=== PATIENT | female | born 1970 | race Caucasian/White ===

== ENCOUNTER 2020-11-29 07:40 | Outpatient (CLI) | payer OTHER, SELFPAY ==
[2020-11-29 19:31] LABS: Basophils Percent Auto 0.4 % (0.2-1.2); Eosinophils Absolute Auto 0.1 K/mm3 (0-0.3); Eosinophils Percent Auto 0.9 % (0-4.4); Hematocrit 41.3 % (37.0-47.0); Hemoglobin 13.3 g/dL (12.0-15.0); Immature Granulocyte Absolute 0.01 K/mm3 (0.00-0.031); Immature Granulocyte Percent A 0.1 % (0-0.5); Lymphocytes Absolute Auto 2.57 K/mm3 (0.9-3.2); Lymphocytes Percent Auto 32.6 % (18.3-44.2); Mean Corpuscular HGB Conc 32.2 g/dl (32-36); Mean Corpuscular Hemoglobin 30.4 pg (26-34); Mean Corpuscular Volume 94.5 fl (80-100); Mean Platelet Volume 9.8 fl (7.4-10.4); Monocytes Absolute Auto 0.5 K/mm3 (0.1-0.6); Monocytes Percent Auto 6.3 % (2.6-8.5); Neutrophils Absolute Auto 4.7 K/mm3 (1.3-6.7); Neutrophils Percent Auto 59.7 % (45.5-73.1); Platelet Count Result 399 k/mm3 (150-375); Red Blood Count 4.37 M/mm3 (4.2-5.4); Red Cell Distribution Width 13.3 % (11.5-14.5); White Blood Count 7.9 K/mm3 (4.5-10.0)
[2020-11-29 19:38] LABS: Add Urine Microscopic? YES; Appearance Urine Cloudy (Clear); Bilirubin Urine Negative (Negative); Blood Urine 1+ (Negative); Calcium Oxalate Crystals Urine Present /hpf; Color Urine Yellow (Yellow); Glucose Urine UA Negative (Negative); Ketones Urine 1+ mg/dL (Negative); Leukocyte Esterase Ur Negative LEU/UL (Negative); Mucus Urine Few /lpf; Nitrate Urine Negative (Negative); Protein Urine 1+ mg/dL (Negative); Squamous Epithelial Cell Urine Few /hpf (Few)
[2020-11-29 19:43] LABS: Alanine Aminotransferase 30 U/L (4-35); Albumin Level 4.1 g/dL (3.5-5.1); Alkaline Phosphatase 67 U/L (38-126); Anion Gap 10 mmol/L (8-16); Aspartate Amino Transferase 25 U/L (14-36); Bilirubin,Total 0.5 mg/dL (0.2-1.3); Blood Urea Nitrogen 16 mg/dL (7-17); Calcium 9.3 mg/dL (8.4-10.2); Carbon Dioxide 26 mmol/L (22-30); Chloride 107 mmol/L (98-107); Cholesterol 146 mg/dL (0-200); Estimated Glomerular Filt Rate > 60; Glucose 99 mg/dL (65-105); HDL Direct 35 mg/dL; Hemoglobin A1C 5.4 % (<5.7); Potassium 3.7 mmol/L (3.4-5.0); Sodium 143 mmol/L (137-145); Triglycerides 59 mg/dL (<150)
[2020-11-29 19:48] LABS: Specific Grav Ur 1.035 (1.001-1.035)
[2020-11-29 19:52] LABS: LDL Cholesterol Direct 83 mg/dL
[2020-11-29 19:58] LABS: Free T4 Free Thyroxine 1.21 ng/mL (0.78-2.19); Vitamin D 25 Hydroxy 72.7 ng/mL
[2020-11-29 20:45] LABS: Folic Acid 16.8 ng/mL (2.76->20)
[2020-12-03 05:57] LABS: C-Peptide 1.46 ng/mL (0.80-3.85); FSH 14.7 mIU/mL (***); Triiodothyronine T3 Free 3.1 pg/mL (2.3-4.2)
[2020-12-03 10:37] LABS: T3 Reverse 16 ng/dL (8-25)
== END 2020-11-29 07:41 | disposition home or self-care (01) ==
PROVIDERS: PCP Family Medicine; Referring Provider Family Medicine; Visit Provider Obstetrics & Gynecology
DX: Z00.00 Encounter for general adult medical examination without abnormal findings (principal); R73.09 Other abnormal glucose; R79.89 Other specified abnormal findings of blood chemistry; Z80.9 Family history of malignant neoplasm, unspecified; R53.82 Chronic fatigue, unspecified; Z82.62 Family history of osteoporosis; Z79.899 Other long term (current) drug therapy; G25.81 Restless legs syndrome
CPT/HCPCS: 36415; 80053; 80061; 81001; 82306; 82607; 82746; 83001; 83036; 84439; 84443; 84481; 84482; 84681; 85025; 86140

== ENCOUNTER 2020-12-12 16:54 | Outpatient (CLI) | payer OTHER, SELFPAY ==
--- NOTE | ~2020-12-12 | MM_ITS ---
EXAMINATION: MM screening trini BI w dione HISTORY: Screening mammogram, family history of breast cancer in her mother. TECHNIQUE: Craniocaudal and mediolateral oblique 3-D tomosynthesis images were obtained and synthetic 2-D images were generated. CAD analysis was submitted and interpreted. COMPARISON: 03/22/2019, 10/17/2017, 08/01/2016 BREAST PARENCHYMAL COMPOSITION: There are scattered areas of fibroglandular density. FINDINGS: There is no evidence of suspicious mass, calcification, or architectural distortion to sugg est malignancy in either breast. There has been no suspicious interval change. IMPRESSION: 1. No mammographic evidence of malignancy. 2. Recommend routine screening mammography in one year. BI-RADS Category 1: Negative Reviewed, dictated and finalized at location A.
== END 2020-12-12 16:55 | disposition home or self-care (01) ==
LOC: ANHIMG 16:56
PROVIDERS: PCP Family Medicine; Visit Provider Obstetrics & Gynecology
DX: Z12.31 Encounter for screening mammogram for malignant neoplasm of breast (principal)
CPT/HCPCS: 77063; 77067

== ENCOUNTER 2021-01-23 12:54 | Outpatient (CLI) | payer OTHER, SELFPAY ==
[2021-01-23 18:49] LABS: Free T4 Free Thyroxine 1.06 ng/mL (0.78-2.19)
[2021-01-23 19:05] LABS: Thyroid Stimulating Hormone 0.595 uIU/mL (0.465-4.680); Total Triiodothyronine (T3) 1.42 NG/ML (0.97-1.69)
[2021-01-25 13:44] LABS: Thyrotropin Receptor Antibody <1.00 IU/L (<=2.00)
[2021-01-26 01:14] LABS: Thyroid Peroxidase Antibodies <1 IU/mL (<9)
== END 2021-01-23 12:55 | disposition home or self-care (01) ==
PROVIDERS: PCP Family Medicine; Visit Provider Internal Medicine Endocrinology, Diabetes & Metabolism
DX: E05.90 Thyrotoxicosis, unspecified without thyrotoxic crisis or storm (principal); E07.9 Disorder of thyroid, unspecified
CPT/HCPCS: 36415; 83519; 84439; 84443; 84480; 86376

== ENCOUNTER 2021-05-07 09:33 | Outpatient (CLI) | payer OTHER, SELFPAY ==
[2021-05-08 06:16] LABS: Vitamin D 25 Hydroxy 40.2 ng/mL
== END 2021-05-07 09:34 | disposition home or self-care (01) ==
LOC: ANHBWCLAB 09:34
PROVIDERS: PCP Family Medicine; Visit Provider Family Medicine
DX: R79.89 Other specified abnormal findings of blood chemistry (principal)
CPT/HCPCS: 36415; 82306

== ENCOUNTER 2022-02-07 07:22 | Outpatient (CLI) | payer OTHER, SELFPAY ==
--- NOTE | ~2022-02-07 | MM_ITS ---
EXAMINATION: MM screening trini BI w dione HISTORY: Screening mammogram TECHNIQUE: Craniocaudal and mediolateral oblique 3-D tomosynthesis images were obtained and synthetic 2-D images were generated. CAD analysis was submitted and interpreted. COMPARISON: 12/12/2020, 03/22/2019, 10/17/2017 bilateral screening mammogram examinations BREAST PARENCHYMAL COMPOSITION: There are scattered areas of fibroglandular density. FINDINGS: Stable approximately 5.8 x 8 mm benign circumscribed intramammary lymph node, upper outer r ight breast. There is no evidence of suspicious mass, calcification, or architectural distortion to s uggest malignancy in either breast. There has been no suspicious interval change. IMPRESSION: 1. No mammographic evidence of malignancy. 2. Recommend routine screening mammography in one year. BI-RADS Category 2: Benign finding(s). Reviewed, dictated and finalized at location A.
== END 2022-02-07 07:23 | disposition home or self-care (01) ==
PROVIDERS: PCP Family Medicine; Visit Provider Obstetrics & Gynecology
DX: Z12.31 Encounter for screening mammogram for malignant neoplasm of breast (principal)
CPT/HCPCS: 77063; 77067

== ENCOUNTER 2022-05-10 07:34 | Outpatient (CLI) | payer OTHER, SELFPAY ==
[2022-05-10 19:31] LABS: Hemoglobin 13.3 g/dL (12.0-15.0); Mean Corpuscular HGB Conc 32.4 g/dl (32-36); Mean Corpuscular Hemoglobin 30.8 pg (26-34); Mean Corpuscular Volume 94.9 fl (80-100); Mean Platelet Volume 9.7 fl (7.4-10.4); Platelet Count Result 401 k/mm3 (150-375); Red Blood Count 4.32 M/mm3 (4.2-5.4); Red Cell Distribution Width 13.2 % (11.5-14.5); White Blood Count 8.4 K/mm3 (4.5-10.0)
[2022-05-10 19:34] LABS: Alanine Aminotransferase 39 U/L (6-35); Albumin Level 4.3 g/dL (3.5-5.1); Alkaline Phosphatase 85 U/L (38-126); Anion Gap 7 mmol/L (8-16); Aspartate Amino Transferase 41 U/L (14-36); Bilirubin,Total 0.5 mg/dL (0.2-1.3); Blood Urea Nitrogen 16 mg/dL (7-17); Calcium 8.9 mg/dL (8.4-10.2); Carbon Dioxide 28 mmol/L (22-30); Chloride 102 mmol/L (98-107); Cholesterol 178 mg/dL (0-200); Estimated Glomerular Filt Rate > 60; Glucose 86 mg/dL (65-110); HDL Direct 33 mg/dL; Potassium 3.7 mmol/L (3.4-5.0); Sodium 137 mmol/L (137-145); Triglycerides 83 mg/dL (<150)
[2022-05-10 19:46] LABS: LDL Cholesterol Direct 110 mg/dL
[2022-05-10 20:01] LABS: Thyroid Stimulating Hormone 0.409 uIU/mL (0.465-4.680)
== END 2022-05-10 07:35 | disposition home or self-care (01) ==
LOC: ANHBWCLAB 07:35
PROVIDERS: PCP Family Medicine; Visit Provider Family Medicine
DX: Z00.00 Encounter for general adult medical examination without abnormal findings (principal); E66.9 Obesity, unspecified; R53.82 Chronic fatigue, unspecified
CPT/HCPCS: 36415; 80053; 80061; 84443; 85027

== ENCOUNTER 2022-07-10 08:29 | Outpatient (CLI) | payer OTHER, SELFPAY ==
[2022-07-10 21:00] LABS: Alanine Aminotransferase 39 U/L (6-35); Albumin Level 4.2 g/dL (3.5-5.1); Alkaline Phosphatase 88 U/L (38-126); Aspartate Amino Transferase 64 U/L (14-36); Bilirubin,Total 0.6 mg/dL (0.2-1.3)
== END 2022-07-10 08:30 | disposition home or self-care (01) ==
LOC: ANHBWCLAB 08:30
PROVIDERS: PCP Family Medicine; Visit Provider Family Medicine
DX: R74.01 Elevation of levels of liver transaminase levels (principal)
CPT/HCPCS: 36415; 80076

== ENCOUNTER → 2022-07-19 08:01 | Outpatient (CLI) | payer OTHER, SELFPAY ==
--- NOTE | ~2022-07-19 | US_ITS ---
EXAMINATION: US abdomen limited DATE: 07/19/2022 08:16 INDICATION: Elevated liver function tests, prior cholecystectomy TECHNIQUE: Multiple grayscale and Doppler ultrasound images of the abdomen were obtained. COMPARISON: None available FINDINGS: Bowel gas obscures visualization of the pancreas. The visualized portions of the pancreas a re unremarkable. The liver is normal with normal echogenicity and echotexture. No surface nodularity. Normal hepatopetal flow in the main portal vein. The gallbladder is surgically absent. The normal co mmon bile duct measures 6 mm. IMPRESSION: 1. No sonographic correlate for the patient's symptoms. Reviewed, dictated and finalized at location B. RITY SERGEANT
== END ==
PROVIDERS: PCP Family Medicine; Visit Provider Family Medicine
DX: R74.01 Elevation of levels of liver transaminase levels (principal)
CPT/HCPCS: 76705

== ENCOUNTER 2022-09-25 08:28 | Outpatient (CLI) | payer OTHER, SELFPAY ==
[2022-09-25 20:31] LABS: Alanine Aminotransferase 33 U/L (6-35); Albumin Level 4.3 g/dL (3.5-5.1); Alkaline Phosphatase 87 U/L (38-126); Aspartate Amino Transferase 45 U/L (14-36); Bilirubin,Total 0.5 mg/dL (0.2-1.3)
[2022-09-25 21:10] LABS: Thyroid Stimulating Hormone 0.528 uIU/mL (0.465-4.680)
== END 2022-09-25 08:29 | disposition home or self-care (01) ==
LOC: ANHBWCLAB 08:29
PROVIDERS: PCP Family Medicine; Visit Provider Nurse Practitioner Family
DX: R74.8 Abnormal levels of other serum enzymes (principal); R74.01 Elevation of levels of liver transaminase levels; R79.89 Other specified abnormal findings of blood chemistry
CPT/HCPCS: 36415; 80076; 84443

== ENCOUNTER 2023-01-23 06:14 | Day surgery (SDC) | payer OTHER, SELFPAY ==
[2022-12-17 10:59] VITALS: BMI 36.0
[2023-01-07 11:52] VITALS: BMI 34.0
--- NOTE | 2023-01-22 09:18 | P.PNAN_ITS ---
Anes - Initial Pre Proc Eval Procedure: Operation Date: 01/23/23 08:00 Proposed Procedures p Screening Colonoscopy - Ike Hernandez MD Date/Time: 01/22/23 09:18 Surgeon: Ike Hernandez MD Pre Op Diagnosis: Neoplasm Screening Patient Data Age: 52 Gender: F Height: 1.71 m Weight: 100 kg Allergies Allergy/AdvReac Type Severity Reaction Status Date / Time No Known Allergies Allergy Verified 01/23/23 06:48 Home Medications Medication Instructions Recorded Confirmed Type escitalopram oxalate 5 mg tablet 5 mg PO DAILY #90 tabs 08/04/22 01/23/23 Rx (Lexapro) levonorgestrel 21 mcg/24 hours (8 1 device intrauterine ONCE 10/14/22 01/23/23 History yrs) 52 mg intrauterine device (Mirena) Patient hx anesthesia problems: none Family hx anesthesia problems: none Results Review: All pre-operative results and documents have been reviewed as part of the pre- operative evaluation. PMFSH Past Medical History Medical History Vaginal delivery x 3 Surgical History Surgical History History of cholecystectomy Family History Family History Grandparent Hypertension Cerebrovascular accident Carcinoma of colon, Onset Age: 55 Diabetes mellitus, Onset Age: 75 Mother Family history of malignant neoplasm of breast in first degree relative, Onset Age: 56 Patient's mother is Depression Anxiety Sibling Patient's brother is Father Hypertension Social History Social History Smoking status: Never smoker Second hand tobacco smoke exposure: No Smoking end date: 06/02/14 Alcohol intake: current Substance use: never Substance use type: does not use Lack of Transportation: No Lack of Food: Never True Current Housing: I Have Housing Concerned About Future Housing: No Difficulty Paying Gas/Electric Bills: No Difficulty Paying for Meds: No Currently Unemployed: No Education: Associate Degree Difficulty w/ Childcare or Family Care: No Living arrangements: with family Spiritual care concerns: No Anes - Eval Final PreProcedure Day of Procedure 01/22/23 09:18 Patient weight: obese Heart: regular rate and rhythm Lungs: clear to auscultation Airway: Mallampati scale class II Neurological: alert and oriented Last oral intake: >/= 8 hours ASA classification: II Emergent: no Anesthetic plan: proceed Anesthesia type and monitoring: general GIVS and standard monitoring Results Review: All pre-operative results and documents have been reviewed as part of the pre- operative evaluation. Informed Consent: The patient's anesthetic plan and its attendant risks and benefits were discussed with the patient/family/POA. Questions were solicited and answers provided to the satisfaction of the patient/family/POA.
[2023-01-23 06:49] VITALS: BP 141/92; PULSE 67; RESP 18; TEMP 36.7; O2SAT 98
[2023-01-23] MEDS: LACTATED RINGERS 1,000 ML 150 ML IV CONT (07:06)
--- NOTE | 2023-01-23 08:18 | PM.HPGS ---
History of Present Illness History of Present Illness Consent: Risks, benefits, and alternatives have been discussed and questions answered. Patient agrees to proceed with procedure. Chief complaint: Neoplasm Screening Narrative: Evie Mondragon is a 52 year old female here for first screening colonoscopy Review of Systems Constitutional: Constitutional: Denies headache(s) and Denies weakness Eyes: Eyes: Denies blurry vision ENT: Reports Normal hearing present, Denies headache(s) and Denies neck pain Cardiovascular: Cardiovascular: Denies chest pain and Denies dyspnea Respiratory: Respiratory: Denies dyspnea Gastrointestinal: Gastrointestinal: Reports no additional gastrointestinal complaints Genitourinary: Genitourinary: Denies dysuria Musculoskeletal: Musculoskeletal: Denies neck pain Integumentary/Breasts: Skin/Breast: Denies dry skin Neurologic: Reports Normal hearing present, Denies headache(s) and Denies weakness Psychiatric: Psychiatric: Denies anxiety Endocrine: Endocrine: Denies change in body appearance Hematologic/Lymphatic: Hematologic/Lymphatic: Denies easy bleeding Allergic/Immunologic: Allergic/Immunologic: Denies urticaria PMF Past Medical History Medical History (Updated 01/23/23 @ 08:19 by Ike Hernandez MD) Colon cancer screening Vaginal delivery x 3 Surgical History Surgical History History of cholecystectomy Family History Family History Grandparent Hypertension Cerebrovascular accident Carcinoma of colon, Onset Age: 55 Diabetes mellitus, Onset Age: 75 Mother Family history of malignant neoplasm of breast in first degree relative, Onset Age: 56 Patient's mother is Depression Anxiety Sibling Patient's brother is Father Hypertension Social History Social History Smoking status: Never smoker Second hand tobacco smoke exposure: No Smoking end date: 06/02/14 Alcohol intake: current Substance use: never Substance use type: does not use Lack of Transportation: No Lack of Food: Never True Current Housing: I Have Housing Concerned About Future Housing: No Difficulty Paying Gas/Electric Bills: No Difficulty Paying for Meds: No Currently Unemployed: No Education: Associate Degree Difficulty w/ Childcare or Family Care: No Living arrangements: with family Spiritual care concerns: No Meds Home Medications and Allergies Home Medications Medication Instructions Recorded Confirmed Type escitalopram oxalate 5 mg tablet 5 mg PO DAILY #90 tabs 08/04/22 01/23/23 Rx (Lexapro) levonorgestrel 21 mcg/24 hours (8 1 device intrauterine ONCE 10/14/22 01/23/23 History yrs) 52 mg intrauterine device (Mirena) Allergies Allergy/AdvReac Type Severity Reaction Status Date / Time No Known Allergies Allergy Verified 01/23/23 06:48 Vital Signs Vital Signs - 24 hr 01/23/23 06:49 Temperature 98.1 F Pulse Rate 67 Respiratory Rate 18 Blood Pressure 141/92 H Pulse Oximetry 98 Oxygen Delivery Room Air Exam Const: General: comfortable and no acute distress HENMT: Face/Nose/Sinus: Normal nares present Eyes: General: appearance normal, both eyes and all related structures Neck: Neck: no JVD Resp: Auscultation: clear to auscultation bilaterally Cardio: Rate: regular rate Rhythm: regular rhythm GI: Inspection: non-distended GI Palp: Yes Soft to palpation Skin: General skin exam: normal color Neuro: General: gait normal Speech: normal speech Extrem: General: normal to inspection Psych: Mental Status: mental status grossly normal Assessment and Plan Assessment and plan (1) Colon cancer screening: Code(s): Z12.11 - Encounter for screening for malignan
[2023-01-23 08:50] VITALS: BP 131/89; PULSE 68; RESP 20; O2SAT 95
[2023-01-23 09:00] VITALS: BP 140/79; PULSE 61; RESP 15; O2SAT 100
[2023-01-23 09:10] VITALS: BP 144/80; PULSE 58; RESP 16; O2SAT 100
--- NOTE | 2023-01-23 10:33 | WPDANESPN ---
Anes - Prog Note Post-Op Date/Time: 01/23/23 10:33 Cardiovascular status: normal Respiratory status: normal Airway patency: baseline Mental status: baseline Post-Op hydration status: normal Vital Signs: Last Vital Signs Temp 36.7 C 01/23/23 06:49 Pulse 58 L 01/23/23 09:10 Resp 16 01/23/23 09:10 BP 144/80 H 01/23/23 09:10 Pulse Ox 100 01/23/23 09:10 O2 Del Method Room Air 01/23/23 09:10 Pain Score (VAS): 0 I/O: Intake & Output 01/22/23 01/23/23 01/23/23 23:59 07:59 15:59 Intake Total 400 Balance 400 Post-procedural complaints: none Patient Feedback: Patient satisfied with anesthetic care. Other Findings: Patient vital signs back to baseline. Patient denies nausea and vomiting. Patient's pain under control. Patient OK for discharge.
== END 2023-01-23 09:29 | disposition home or self-care (01) ==
PROVIDERS: PCP Family Medicine; Visit Provider Internal Medicine Gastroenterology
PROC: 0DJD8ZZ Inspection of Lower Intestinal Tract, Via Natural or Artificial Opening Endoscopic (ICD-10-PCS; CPT 45378; principal; 2023-01-23 08:00)
DX: Z12.11 Encounter for screening for malignant neoplasm of colon (principal); D12.2 Benign neoplasm of ascending colon; D12.3 Benign neoplasm of transverse colon; K64.8 Other hemorrhoids
CPT/HCPCS: 45385; 45380

== ENCOUNTER 2023-01-23 09:00 | Outpatient (NON) | payer OTHER, SELFPAY | END 2023-01-23 09:01 | disposition home or self-care (01) | PROVIDERS: PCP Family Medicine; Visit Provider Internal Medicine Gastroenterology | DX: D12.2 Benign neoplasm of ascending colon (principal) | CPT/HCPCS: 88305 ==

== ENCOUNTER 2023-04-02 07:57 | Outpatient (CLI) | payer OTHER, SELFPAY ==
--- NOTE | ~2023-04-02 | MM_ITS ---
EXAMINATION: MM screening [facility] BI w dione HISTORY: Screening mammogram TECHNIQUE: Craniocaudal and mediolateral oblique 3-D tomosynthesis images were obtained and synthetic 2-D images were generated. CAD analysis was submitted and interpreted. COMPARISON: 02/07/2022, 12/12/2020, 03/22/2019 BREAST PARENCHYMAL COMPOSITION: There are scattered areas of fibroglandular density. FINDINGS: RIGHT BREAST: An asymmetry is present in the posterior third of the slightly outer breast at the post erior fibroglandular margin approximately 10 cm from the nipple on the craniocaudal view. LEFT BREAST: No suspicious mass, calcification, or architectural distortion are identified to suggest malignancy. There has been no suspicious interval change. IMPRESSION: 1. Right breast asymmetry on the craniocaudal view. 2. Additional mammographic views and possible breast ultrasound are recommended. BI-RADS Category 0: Incomplete: Needs additional imaging evaluation. Reviewed, dictated and finalized at location A. IMPRESSION: 1. Right breast asymmetry on the craniocaudal view. 2. Additional mammographic views and possible breast ultrasound are recommended . BI-RADS Category 0: Incomplete: Needs additional imaging evaluation.
== END 2023-04-02 07:58 | disposition home or self-care (01) ==
LOC: CHSIMG 07:59
PROVIDERS: PCP Family Medicine; Visit Provider Obstetrics & Gynecology
DX: Z12.31 Encounter for screening mammogram for malignant neoplasm of breast (principal); R92.8 Other abnormal and inconclusive findings on diagnostic imaging of breast
CPT/HCPCS: 77063; 77067

== ENCOUNTER 2023-04-07 08:45 | Outpatient (CLI) | payer OTHER, SELFPAY ==
--- NOTE | ~2023-04-07 | MMUS_ITS ---
EXAMINATION: MM diagnostic trini RT w dione, US breast RT limited HISTORY: Follow-up right breast asymmetry TECHNIQUE: Additional 3-D tomosynthesis images of the right breast were performed and synthetic 2-D i mages were generated. CAD analysis was submitted and interpreted. High resolution Limited right breas t ultrasound was performed. COMPARISON: 04/02/2023 BREAST PARENCHYMAL COMPOSITION: Breast composed of scattered areas of fibroglandular density FINDINGS: MAMMOGRAPHIC FINDINGS: There is a mass in the upper outer quadrant of the right breast, middle third, consistent with a lymp h node. No suspicious masses to suggest malignancy. Focal asymmetry laterally on CC view is less appa rent with spot compression view. ULTRASOUND: Limited right breast ultrasound: At 9:00, 7 cm from the nipple there is a normal-appearing intramamma ry left node measuring 9 mm. At 9:00, 9 cm from the nipple there is a 3 mm cyst. No suspicious masses in the right breast to suggest malignancy. IMPRESSION: 1. No evidence for malignancy in the right breast. Benign findings. 2. Routine yearly screening mammogram and regular clinical breast examination are recommended. BI-RADS CATEGORY 0 - INCOMPLETE STUDY, NEED ADDITIONAL IMAGING EVALUATION. Reviewed, dictated and finalized at location A. RO ATTENDANT IMPRESSION: 1. No evidence for malignancy in the right breast. Benign findings. 2. Routine yearly screening mammogram and regular clinical breast examination a re recommended. BI-RADS CATEGORY 0 - INCOMPLETE STUDY, NEED ADDITIONAL IMAGING EVALUATION.
== END 2023-04-07 08:46 | disposition home or self-care (01) ==
LOC: CHSIMG 08:47
PROVIDERS: PCP Family Medicine; Visit Provider Obstetrics & Gynecology
DX: R92.8 Other abnormal and inconclusive findings on diagnostic imaging of breast (principal)
CPT/HCPCS: 76642; 77061; 77065; G0279

== ENCOUNTER 2024-02-05 07:30 | Outpatient (CLI) | payer OTHER, SELFPAY ==
[2024-02-05 18:37] LABS: Basophils Absolute Auto 0.1 K/mm3 (0.0-0.1); Basophils Percent Auto 0.6 % (0.2-1.2); Eosinophils Absolute Auto 0.2 K/mm3 (0-0.3); Eosinophils Percent Auto 1.8 % (0-4.4); Hematocrit 42.9 % (37.0-47.0); Hemoglobin 13.5 g/dL (12.0-15.0); Immature Granulocyte Absolute 0.01 K/mm3 (0.00-0.031); Immature Granulocyte Percent A 0.1 % (0-0.5); Lymphocytes Percent Auto 31.4 % (18.3-44.2); Mean Corpuscular HGB Conc 31.5 g/dl (32-36); Mean Corpuscular Hemoglobin 30.5 pg (26-34); Mean Corpuscular Volume 97.1 fl (80-100); Mean Platelet Volume 9.7 fl (7.4-10.4); Monocytes Absolute Auto 0.6 K/mm3 (0.1-0.6); Monocytes Percent Auto 6.8 % (2.6-8.5); Neutrophils Absolute Auto 4.9 K/mm3 (1.3-6.7); Neutrophils Percent Auto 59.3 % (45.5-73.1); Platelet Count Result 336 k/mm3 (150-375); Red Blood Count 4.42 M/mm3 (4.2-5.4); Red Cell Distribution Width 13.7 % (11.5-14.5); White Blood Count 8.3 K/mm3 (4.5-10.0)
[2024-02-05 18:43] LABS: Alanine Aminotransferase 23 U/L (6-35); Albumin Level 4.1 g/dL (3.5-5.1); Alkaline Phosphatase 74 U/L (38-126); Anion Gap 9 mmol/L (4-12); Aspartate Amino Transferase 92 U/L (14-36); Bilirubin,Total 0.4 mg/dL (0.2-1.3); Blood Urea Nitrogen 21 mg/dL (7-17); Carbon Dioxide 28 mmol/L (22-30); Chloride 102 mmol/L (98-107); Cholesterol 173 mg/dL (0-200); Estimated Glomerular Filt Rate > 60; Glucose 82 mg/dL (65-110); HDL Direct 36 mg/dL; Magnesium 2.1 mg/dL (1.6-2.3); Potassium 4.3 mmol/L (3.4-5.0); Sodium 139 mmol/L (137-145); Triglycerides 112 mg/dL (<150)
[2024-02-05 18:54] LABS: LDL Cholesterol Direct 106 mg/dL
[2024-02-05 19:25] LABS: Vitamin D 25 Hydroxy 29.4 ng/mL
[2024-02-05 21:40] LABS: Free T4 Free Thyroxine Reflex 0.82 ng/dL (0.78-2.19)
[2024-02-05 22:31] LABS: Total Triiodothyronine (T3) 1.18 NG/ML (0.97-1.69)
== END 2024-02-05 07:31 | disposition home or self-care (01) ==
PROVIDERS: PCP Nurse Practitioner Adult Health; Visit Provider Nurse Practitioner Adult Health
DX: R79.89 Other specified abnormal findings of blood chemistry (principal); I10 Essential (primary) hypertension
CPT/HCPCS: 36415; 80053; 80061; 82306; 83735; 84439; 84443; 84480; 85025

== ENCOUNTER 2024-02-12 07:46 | Outpatient (CLI) | payer OTHER, SELFPAY ==
[2024-02-12 19:16] LABS: Alanine Aminotransferase 24 U/L (6-35); Albumin Level 4.2 g/dL (3.5-5.1); Alkaline Phosphatase 80 U/L (38-126); Aspartate Amino Transferase 41 U/L (14-36); Bilirubin,Total 0.3 mg/dL (0.2-1.3)
[2024-02-16 11:04] LABS: Thyroid Peroxidase Antibodies 1 IU/mL (<9)
== END 2024-02-12 07:47 | disposition home or self-care (01) ==
LOC: ANHBWCLAB 07:48
PROVIDERS: PCP Nurse Practitioner Adult Health; Visit Provider Nurse Practitioner Adult Health
DX: R74.8 Abnormal levels of other serum enzymes (principal); R79.89 Other specified abnormal findings of blood chemistry
CPT/HCPCS: 36415; 80076; 86376

== ENCOUNTER 2024-02-12 10:33 | Outpatient (CLI) | payer OTHER, SELFPAY ==
--- NOTE | ~2024-02-12 | US_ITS ---
EXAMINATION: US thyroid DATE: 02/12/2024 10:47 INDICATION: Other specified abnormal findings of blood chemistry. TECHNIQUE: Multiple ultrasound images of the thyroid were obtained. COMPARISON: None. FINDINGS: The right thyroid lobe measures 5.2 x 2.8 x 2.3 cm. The left thyroid lobe measures 4.6 x 2.0 x 2.0 c m. In the right thyroid lobe, there is a 2.4 cm solid, hypoechoic, wider than tall nodule with evita h margin without echogenic foci (TI-RADS TR4). In the right thyroid lobe, there is a 1.2 cm almost en tirely solid, hypoechoic, wider than tall nodule with smooth margin without echogenic foci (TR4). In the left thyroid lobe, there is a 15 mm solid, hypoechoic, wider than tall nodule with smooth margin without echogenic foci (TR4). In the left thyroid lobe, there is an 18 mm predominantly solid, hypoec hoic, wider than tall nodule with smooth margin without echogenic foci (TR4). IMPRESSION: 1. Multinodular goiter. Consider ultrasound-guided fine-needle aspiration of 2 nodules. Reviewed, dictated and finalized at location A.
== END 2024-02-12 10:34 | disposition home or self-care (01) ==
LOC: GOSHIMG 10:34
PROVIDERS: PCP Nurse Practitioner Adult Health; Visit Provider Nurse Practitioner Adult Health
DX: E04.2 Nontoxic multinodular goiter (principal); R79.89 Other specified abnormal findings of blood chemistry
CPT/HCPCS: 76536

== ENCOUNTER 2024-04-05 10:10 | Outpatient (CLI) | payer OTHER, SELFPAY ==
--- NOTE | ~2024-04-05 | MM_ITS ---
EXAMINATION: MM screening trini BI w dione HISTORY: Screening TECHNIQUE: Craniocaudal and mediolateral oblique 3-D tomosynthesis images were obtained and synthetic 2-D images were generated. CAD analysis was submitted and interpreted. COMPARISON: Comparison to multiple prior studies sequentially, with oldest reviewed study dated 10/17. BREAST PARENCHYMAL COMPOSITION: Not dense: There are scattered areas of fibroglandular density. FINDINGS: There is no evidence of suspicious mass, calcification, or architectural distortion to sugg est malignancy in either breast. There has been no suspicious interval change. IMPRESSION: 1. No mammographic evidence of malignancy. 2. Recommend routine screening mammography in one year. BI-RADS Category 1: Negative Reviewed, dictated and finalized at location B. N CAPITAL CONSULTANT
== END 2024-04-05 10:11 | disposition home or self-care (01) ==
LOC: CHSIMG 10:12
PROVIDERS: PCP Nurse Practitioner Adult Health; Visit Provider Nurse Practitioner Obstetrics & Gynecology
DX: Z12.31 Encounter for screening mammogram for malignant neoplasm of breast (principal)
CPT/HCPCS: 77063; 77067

== ENCOUNTER 2025-03-10 07:10 | Outpatient (CLI) | payer OTHER, SELFPAY ==
[2025-03-10 19:23] LABS: Hematocrit 40.9 % (37.0-47.0); Hemoglobin 12.7 g/dL (12.0-15.0); Mean Corpuscular HGB Conc 31.1 g/dl (32-36); Mean Corpuscular Hemoglobin 30.3 pg (26-34); Mean Corpuscular Volume 97.6 fl (80-100); Platelet Count Result 360 k/mm3 (150-375); Red Blood Count 4.19 M/mm3 (4.2-5.4); White Blood Count 8.6 K/mm3 (4.5-10.0)
[2025-03-10 19:36] LABS: Alanine Aminotransferase 20 U/L (6-35); Albumin Level 3.9 g/dL (3.5-5.1); Alkaline Phosphatase 80 U/L (38-126); Anion Gap 7 mmol/L (4-12); Aspartate Amino Transferase 50 U/L (14-36); Bilirubin,Total 0.3 mg/dL (0.2-1.3); Blood Urea Nitrogen 15 mg/dL (7-17); Calcium 9.4 mg/dL (8.4-10.2); Carbon Dioxide 28 mmol/L (22-30); Chloride 104 mmol/L (98-107); Cholesterol 157 mg/dL (0-200); Estimated Glomerular Filt Rate > 60; Glucose 72 mg/dL (65-110); HDL Direct 36 mg/dL; Potassium 4.2 mmol/L (3.4-5.0); Sodium 139 mmol/L (137-145); Total Protein 7.1 g/dL (6.3-8.2); Triglycerides 109 mg/dL (<150)
[2025-03-10 19:47] LABS: Hemoglobin A1C 5.0 % (<5.7)
[2025-03-10 20:07] LABS: Thyroid Stimulating Hormone 0.377 uIU/mL (0.465-4.680)
== END 2025-03-10 07:11 | disposition home or self-care (01) ==
PROVIDERS: PCP Nurse Practitioner Adult Health; Visit Provider Nurse Practitioner Adult Health
DX: R03.0 Elevated blood-pressure reading, without diagnosis of hypertension (principal); E04.1 Nontoxic single thyroid nodule; R79.89 Other specified abnormal findings of blood chemistry; R73.09 Other abnormal glucose
CPT/HCPCS: 36415; 80053; 80061; 82306; 83036; 84443; 85027

== ENCOUNTER 2025-03-15 08:49 | Outpatient (CLI) | payer OTHER, SELFPAY ==
--- OUTSIDE RECORDS SUMMARY | 2025-03-15 09:27 | XMS_ITS | Clinical Summary ---
Author Organization [facility] Address [address] [place] [address] Care Team Providers Care Oceanography Teacher Name Role Phone Dev Galvan MD Primary Care Provider [phone] Allergies No known active allergies Surgical History Surgery Date Site/Laterality Comments CHOLECYSTECTOMY 1997 Cholecystectomy Family History Medical History Relation Name Comments Cancer Brother 2 Cancer -; Other Brother 2 Alive and well; Other Brother 3 sarcoma; Hypertension Father 2 Hypertension; Other Father 2 Alive and well; Breast cancer Mother 2 Cancer -breast ; Cause of : Cancer -breast Relation Name Status Comments Brother 1 Alive Brother 2 Brother 3 Father 1 Alive Father 2 Mother 1 Mother 2 Social History Tobacco Use Types Packs/Day Years Used Date Smoking Tobacco: Never Assessed Alcohol Use Standard Drinks/Week Comments Yes 0 (1 standard drink = 0.6 oz pur e alcohol) Comments Unknown Sex and Gender Information Value Date Recorded Sex Assigned at Not on file 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 Gender Identity Not on file Sexual Orientation Not on file Obstetrics History Plan of Treatment Health Maintenance Due Date Last Done Comments Breast Cancer Screening-Mammogram 1970 Cervical Cancer Screening 1970 Colon Cancer Screening-Colonoscopy 1970 Depression Screening 1970 Hepatitis C Screening 1970 Hepatitis B Screening 1988 Regular Well Visit/Exam 18-64 1988 Zoster Vaccine (2 of 3) 07/03/2022 05/08/20 22, 05/07/2021 Covid-19 Vaccine (2024-2 6 season) 2025 04/17/2021, 09/27/2020, 08/30/2020 Influenza Vaccine (#1) 2025 2, 03/08/2021, 03/06/2020 DTaP/Tdap/Td Vaccine (2 - Td or Tdap) 09/25/2032 09/25/2022 Pneumococcal vaccine <65 Aged Out No longer eligible based on patient's age to complete this topic Insurance [facility] Care Teams Oceanography Teacher Relationship Specialty Start Date End Date Dev Galvan MD PCP - General Family Practice 04/22/24
[2025-03-15 19:13] LABS: Free T4 Free Thyroxine 1.05 ng/dL (0.78-2.19)
== END 2025-03-15 08:50 | disposition home or self-care (01) ==
LOC: ANHBWCLAB 08:50
PROVIDERS: PCP Nurse Practitioner Adult Health; Visit Provider Nurse Practitioner Adult Health
DX: E04.1 Nontoxic single thyroid nodule (principal)
CPT/HCPCS: 36415; 84439; 86376

== ENCOUNTER 2025-04-07 07:51 | Outpatient (CLI) | payer OTHER, SELFPAY ==
--- NOTE | ~2025-04-07 | MM_ITS ---
EXAMINATION: MM screening trini BI w dione HISTORY: Screening TECHNIQUE: Craniocaudal and mediolateral oblique 3-D tomosynthesis images were obtained and synthetic 2-D images were generated. CAD analysis was submitted and interpreted. COMPARISON: Comparison to multiple prior studies sequentially, with oldest reviewed study dated , 03/22/2019 BREAST PARENCHYMAL COMPOSITION: There are scattered areas of fibroglandular density. FINDINGS: There is no evidence of suspicious mass, calcification, or architectural distortion to suggest malignancy in either breast. IMPRESSION: 1. No mammographic evidence of malignancy. 2. Recommend routine screening mammography in one year. BI-RADS Category 1: Negative Reviewed, dictated and finalized at location B. TRICAL MAINTENANCE SUPERVISOR
--- OUTSIDE RECORDS SUMMARY | 2025-04-07 16:43 | XMS_ITS | Clinical Summary ---
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 CHO[facility] CHO[facility] PLUS Care Teams Oil And Gas Drafter Relationship Specialty Start Date End Date Dev Galvan MD PCP - General Family Practice 04/22/24
== END 2025-04-07 07:52 | disposition home or self-care (01) ==
LOC: CHSIMG 07:51
PROVIDERS: PCP Nurse Practitioner Adult Health; Visit Provider Nurse Practitioner Adult Health
DX: Z12.31 Encounter for screening mammogram for malignant neoplasm of breast (principal)
CPT/HCPCS: 77063; 77067